=== PATIENT | female | born 1985 | race American Indian/Alaskan Native ===

== ENCOUNTER 2018-02-15 06:13 | Emergency (ER) | payer OTHER ==
[2018-02-15 07:05] LABS: Basophils % (Auto) 0.5 % (0.0-1.8); Eosinophils # (Auto) 0.1 K/mm3 (0.0-0.4); Eosinophils % (Auto) 1.1 % (0.0-4.3); Hemoglobin 12.9 gm/dl (10.1-14.3); Lymphocytes # (Auto) 1.3 K/mm3 (1.2-5.4); Lymphocytes % (Auto) 22.4 % (13.4-35.0); Mean Corpuscular HGB Conc 32 % (30-34); Mean Corpuscular Hemoglobin 30 pg (28-32); Mean Corpuscular Volume 92 fl (79-97); Monocytes # (Auto) 0.3 K/mm3 (0.0-0.8); Monocytes % (Auto) 5.5 % (0.0-7.3); Platelet Count 253 K/mm3 (140-440); Red Blood Count 4.34 M/mm3 (3.65-5.03); Red Cell Distribution Width 12.6 % (13.2-15.2)
[2018-02-15 07:19] LABS: BUN/Creatinine Ratio 10; Blood Urea Nitrogen 5 mg/dL (7-17); Calcium 9.4 mg/dL (8.4-10.2); Hemolysis Index 3
--- NOTE | 2018-02-15 08:01 | XRay Report ---
FINAL REPORT EXAM: XR SHOULDER 2+V LT HISTORY: fall TECHNIQUE: Two views of the left shoulder were submitted. FINDINGS: There is no evidence of fracture or soft tissue injury. IMPRESSION: Within normal limits.
--- NOTE | 2018-02-15 08:02 | XRay Report ---
FINAL REPORT EXAM: XR SPINE CERVICAL 2-3V HISTORY: fall TECHNIQUE: Three views of the cervical spine were submitted. FINDINGS: The disc heights and alignment appear normal. The prevertebral soft tissues and C1-C2 articulation appear intact. IMPRESSION: Within normal limits.
[2018-02-15 08:07] VITALS: BP 110/80
[2018-02-15] MEDS ORDERED: ULTRAM PO ONE (08:58)
--- NOTE | 2018-02-15 10:12 | Emergency Department Report ---
ED General Adult HPI - General Chief complaint: Syncope Stated complaint: CHEST, NECK, LEFT ARM PAIN/RENARD Time Seen by Provider: 02/15/18 08:32 Source: patient Mode of arrival: Ambulatory Limitations: No Limitations - History of Present Illness Initial comments: Patient states that she passed out in route to the bathroom. She is a 32-year- old female who is not in treatment for any medical condition. She states that over the last 3 days the back of her shoulder has been sore. She doesn't report any specific injury. She denies chest pain to me. She denies shortness of breath. He states the shoulder pain hurts worse on movement or twisting. At the time of my exam she is not complaining of any active pain. She is not dyspneic. She denies any head injury. She states that she might have momentarily passed out but did not injure herself. -: Gradual Location: left, upper extremity Radiation: non-radiation Quality: aching Consistency: intermittent Improves with: none Worsens with: movement Associated Symptoms: denies other symptoms - Related Data Previous Rx's Medication Instructions Recorded Last Taken Type Tramadol HCl [Ultram] 50 mg PO Q6H PRN #14 tablet 02/15/18 Unknown Rx Allergies Allergy/AdvReac Type Severity Reaction Status Date / Time Penicillins Allergy Unknown Verified 02/15/18 06:27 ED Review of Systems ROS: Stated complaint: CHEST, NECK, LEFT ARM PAIN/RENARD Other details as noted in HPI Constitutional: denies: chills, fever Eyes: denies: eye pain, eye discharge, vision change ENT: denies: ear pain, throat pain Respiratory: denies: cough, shortness of breath, wheezing Cardiovascular: denies: chest pain, palpitations Endocrine: no symptoms reported Gastrointestinal: denies: abdominal pain, nausea, diarrhea Genitourinary: denies: urgency, dysuria, discharge Musculoskeletal: as per HPI, arthralgia. denies: back pain, joint swelling Skin: denies: rash, lesions Neurological: denies: headache, weakness, paresthesias Psychiatric: denies: anxiety, depression Hematological/Lymphatic: denies: easy bleeding, easy bruising ED Past Medical Hx - Past Medical History Previous Medical History?: No - Surgical History Past Surgical History?: No - Social History Smoking Status: Never Smoker Substance Use Type: None - Medications Home Medications: Home Medications Medication Instructions Recorded Confirmed Last Taken Type Tramadol HCl [Ultram] 50 mg PO Q6H PRN #14 tablet 02/15/18 Unknown Rx ED Physical Exam - General Limitations: No Limitations General appearance: alert, in no apparent distress - Head Head exam: Present: atraumatic, normocephalic - Eye Eye exam: Present: normal appearance, PERRL, EOMI. Absent: scleral icterus - ENT ENT exam: Present: mucous membranes moist - Neck Neck exam: Present: normal inspection, full ROM. Absent: tenderness, meningismus, lymphadenopathy, thyromegaly - Respiratory Respiratory exam: Present: normal lung sounds bilaterally. Absent: respiratory distress - Cardiovascular Cardiovascular Exam: Present: regular rate, normal rhythm. Absent: systolic murmur, diastolic murmur, rubs, gallop - GI/Abdominal GI/Abdominal exam: Present: soft, normal bowel sounds. Absent: distended, tenderness, guarding, rebound, rigid - Extremities Exam Extremities exam: Present: normal inspection, other (the patient's shoulder tenderness appears to be in the posterior trapezius area. Palpation of that area reproduces the patient's pain.) - Back Exam Back exam: Present: normal inspection. Absent: full ROM, tenderness, CVA tenderness (L), muscle spasm, paraspinal tenderness, rash noted - Neurological Exam Neurological exam: Present: alert, oriented X3, CN II-XII intact. Absent: motor sensory deficit - Psychiatric Psychiatric exam: Present: normal affect, normal mood - Skin Skin exam: Present: warm, dry, intact, normal color. Absent: rash ED Course Vital Signs 02/15/18 02/15/18 06:27 08:04 Temperature 97.8 F Pulse Rate 108 H 65 Respiratory 18 15 Rate Blood Pressure 87/40 Blood Pressure 110/80 [Right] O2 Sat by Pulse 98 99 Oximetry ED Medical Decision Making - Lab Data Result diagrams: 02/15/18 06:55 02/15/18 06:55 Critical care attestation.: If time is entered above; I have spent that time in minutes in the direct care of this critically ill patient, excluding procedure time. ED Disposition Clinical Impression: Musculoskeletal pain, Vasovagal episode Disposition: - TO HOME OR SELFCARE Is pt being admited?: No Does the pt Need Aspirin: No Condition: Stable Instructions: Muscle Strain (ED), Syncope (ED) Additional Instructions: Return any acute change or problem. Stay well hydrated. Rx if need something more than [id number] medicine for pain. [facility] or any primary care provider. Prescriptions: Tramadol HCl [Ultram] 50 mg PO Q6H PRN #14 tablet PRN Reason: Pain , Severe (7-10) Referrals: [facility] [Provider Group] - 3-5 Days PRIMARY [facility]ARE,MD [Primary Care Provider] - 3-5 Days Time of Disposition: 10:00
[2018-02-15 10:33] LABS: INR 0.97 (0.87-1.13)
[2018-02-15 10:34] LABS: Partial Thromboplastin Time 28.1 Sec. (24.2-36.6)
== END 2018-02-15 12:00 | disposition home or self-care (01) ==
LOC: ED 06:13
DX: R55 Syncope and collapse (principal); M79.1 Myalgia; Z88.0 Allergy status to penicillin
CPT/HCPCS: 36415; 72040; 80048; 84484; 84703; 85025; 85379; 85610; 85730; 93005; 93010